=== PATIENT | male | born 1990 | race Caucasian/White ===

== ENCOUNTER 2016-11-30 20:09 | Inpatient (IN) | payer OTHER ==
[~2016-11-30] VITALS: Ht 188 cm; Wt 87.3 kg
[2016-11-30 20:39] VITALS: BP 135/77; PULSE 81; RESP 14; O2SAT 100
--- NOTE | 2016-11-30 20:50 | ED.REPORT ---
HPI-General Illness Date of Service Nov 30, 2016 ED Provider: Mulugeta Bernard MD A 26 year old male with a history of polysubstance abuse and meth psychosis is brought to the ED via EMS due to an intentional overdose. The patient was found down by EMS with oxygen saturation of 88%. He was given 0.5 mg of Narcan and improved significantly. The patient intentionally overdosed with heroin one hour prior to arrival due to an argument with his significant other, and continues to make suicidal statements to paramedics and in the ED. The patient also admits to methamphetamine use earlier today in addition to several other drugs. He is now experiencing auditory hallucinations and stating that "people are trying to kill him." The patient takes "mental health medications" but is not seeing a mental health professional at this time. He was released from a [facility] in [place] four days ago. Nursing Notes Chief Complaint: Substance Abuse Nursing Notes Reviewed: Yes General Time Seen by MD: 20:26 Chief Complaint Other (Intentional overdose) Hx Obtained From: Patient, EMS Arrived By: Ambulance Sudden in Onset?: Yes Onset Occurred: 1 - 4 hours ago Recent Healthcare: No recent doctor visit, No recent hospitalization Past Medical History Past Medical History polysubstance abuse meth psychosis Past Surgical History none reported Smoking History Unknown if Ever Smoker Social History Alcohol Use: "Social" Drug Use: IV drugs, Meth, THC Ambulatory Status Independent Review of Systems Unable to Obtain ROS Intoxicated Physical Exam Vital Signs Vital Signs Date Time Temp Pulse Resp B/P Pulse Ox O2 Delivery O2 Flow Rate FiO2 11/30/16 22:44 86 16 102/63 93 Room Air 11/30/16 20:39 36.5 81 14 135/77 100 Room Air Initial VS: Reviewed General/Constitutional: Awake, Alert Behavior: Positive: Agitated Head / Eyes: Atraumatic, Normocephalic, PERRL, EOMI ENT: Atraumatic, Airway patent, Mucous membranes moist Neck: Atraumatic, Supple, Full range of motion Respiratory / Chest: Atraumatic, Breath sounds NL, Breath sounds = bilat, No respiratory distress Cardiovascular: Heart rate NL, Regular rhythm, Heart sounds NL Abdomen: Atraumatic, Soft, Non-tender Back: Atraumatic, Full range of motion Upper Extremities Upper Extremity / MS: Atraumatic, Neurologic intact, Vascular intact Hutchison on L and R arm consistent with prior injection drug use Lower Extremity / Pelvis / MS: Atraumatic, Full range of motion Skin: No rash, Warm, Dry Neurologic: Oriented X3, Speech NL, No motor deficits, No sensory deficits Psychiatric: Mood NL hallucinating paranoid suicidal good insight poor judgement states that he does not wish to stay Interpretation & Diagnostics Lab Results Interpretation Result Diagram: 11/30/16203311/30/162033 Test 11/30/16 20:34 11/30/16 21:14 White Blood Count 7.0th/mm3 (3.8-10.1) Red Blood Count 4.32mil/mm3 (4.40-5.80) Hemoglobin 12.8g/dL (13.8-17.2) Hematocrit 36.1% (41.0-50.0) Mean Corpuscular Volume 83.6fL (81-100) Mean Corpuscular Hemoglobin 29.6pg (27.0-35.0) Mean Corpuscular Hemoglobin Concent 35.5% (32.0-37.0) Red Cell Distribution Width 12.1% (12.3-15.4) Platelet Count 223bil/L (150-400) Neutrophils (%) (Auto) 51.5% (40-74) Lymphocytes (%) (Auto) 34.4% (14-46) Monocytes (%) (Auto) 12.5% (4-12) Eosinophils (%) (Auto) 1.4% (0-5) Basophils (%) (Auto) 0.1% (0-3) Hold Purple Top Tube Received (Received) Hold Blue Top Tube Received (Received) Sodium Level 138mEq/L (134-144) Potassium Level 3.9mEq/L (3.5-5.2) Chloride Level 97mEq/L (97-108) Carbon Dioxide Level 22mmol/L (18-29) Blood Urea Nitrogen 31mg/dL (6-20) Creatinine 1.07mg/dL (0.76-1.27) Estimat Glomerular Filtration Rate 87mL/min (>59) Glucose Level 92mg/dL (60-99) Calcium Level 9.6mg/dL (8.5-10.1) Total Bilirubin 1.7mg/dL (0.0-1.2) Aspartate Amino Transf (AST/SGOT) 43U/L (0-50) Alanine Aminotransferase (ALT/SGPT) 38U/L (0-44) Alkaline Phosphatase 57U/L (25-150) Total Protein 8.8g/dL (6.4-8.4) Albumin 5.3g/dL (3.4-5.0) Thyroid Stimulating Hormone (TSH) 2.290uIU/mL (0.450-4.500) Hold [place] Top Tube Received (Received) Hold Urine Received (Received) Lab Results Interpretation: tox screen positive for benzodiazepines, THC, methamphetamines, opiates, ecstasy and amphetamines Re-Eval/Medical Decision Med Decision/Clinical Course 26-year-old male arrives psychotic and with suicidal ideation. Has used methamphetamine earlier in the day and his suicide plan was to overdose on heroin. Became agitated and threatening to elope which required sedation with IV Haldol and lorazepam. Is not somnolent and will need a mental health eval when he is awake. Time of Eval: 21:49 Re-Evaluation/Progress Note: Patient rechecked, who is awake and conversant. Additional history is obtained. Time of Eval: 23:49 Re-Evaluation/Progress Note: Patient rechecked, who is stable and sleeping. Counseled Regarding: Diagnosis, Lab results Discharge & Departure Shift Change Sign-Out Patient Care Transferred: Yes Discussed Complaint(s): Yes Laboratory Evaluation: Lab evaluation discussed To Dr Torres at midnight. no acute medical issues found, awaiting metabolism of sedation and re-eval Primary Impression: Psychosis Psychosis type: other Qualified Code: F28 - Other psychotic disorder not due to a substance or known physiological condition Additional Impression: Drug abuse Discharge Condition All VS Reviewed: Yes Condition: Stable Care Transferred to: Dr. Torres Care Transferred at: 00:00 Scribe Attestation Portions of this note were transcribed by Claude Jauregui and Go Navarro. I, Dr. Bernard personally performed the history, physical exam and medical decision- making; I reviewed and confirmed the accuracy of the information in the transcribed note. Signed by: Claude Navarro, Scribe, 12/01/16 and 0014. Mulugeta Bernard MD Nov 30, 2016 20:50 Claude Jauregui Nov 30, 2016 23:51 GO NAVARRO Dec 01, 2016 00:12
[2016-11-30] MEDS ORDERED: Haloperidol 5 mg/mL Inj IVPUSH ONE (21:55)
[2016-11-30 22:01] LABS: BASOPHILS % (AUTO) 0.1 % (0-3); EOSINOPHILS % (AUTO) 1.4 % (0-5); MONOCYTES % (AUTO) 12.5 % (4-12); Mean Corpuscular Hemoglobin 29.6 pg (27.0-35.0); Mean Corpuscular Volume 83.6 fL (81-100); NEUTROPHILS % (AUTO) 51.5 % (40-74); Platelet Count 223 bil/L (150-400)
[2016-11-30 22:44] VITALS: BP 102/63; PULSE 86; RESP 16; O2SAT 93
[2016-12-01 06:01] VITALS: BP 95/59; PULSE 71; RESP 14; O2SAT 100
[2016-12-01 07:46] VITALS: BP 90/59; PULSE 74; O2SAT 98
[2016-12-01 11:05] VITALS: BP 86/56; PULSE 79; O2SAT 98
[2016-12-01] MEDS ORDERED: OLANZapine Zydis ODT 5 mg Tablet PO ONE (17:35)
[2016-12-01 19:42] VITALS: BP 103/68; PULSE 80; RESP 18; O2SAT 97
[2016-12-02 00:03] VITALS: BP 106/72; PULSE 89; RESP 16; O2SAT 98
[2016-12-02 06:32] VITALS: BP_SYST 103; BP_SYST 106; BP_DIAS 66; BP_DIAS 72; PULSE 81; PULSE 89; RESP 16; O2SAT 97; O2SAT 98
[2016-12-02 09:05] VITALS: BP 104/61; RESP 12; O2SAT 98
[2016-12-02 09:24] VITALS: BP 104/61; PULSE 81; RESP 12; O2SAT 98
--- NOTE | 2016-12-02 11:18 | NUR ---
[id number]. nurs 26 y.o. male pt admitted to [facility] from [facility] ED at 0917. Pt detained on a 72 hr hold as GD and D to S at 3 pm on 12/01/16. Pt reports hx of depression, anxiety, and polysubstance abuse for last 10yrs, and multiple chem. dep. tx programs without effectiveness. Pt states that his goal is to get tx for his anxiety and the hallucinations he has been experiencing more recently in last 2 yrs with (his preferred substances) daily IV meth and heroin use. Pt also states that he wants to access further chem dep. tx through the court. Pt states that he has court in [place] today and other pending court hearings. Pt states that he has parents and friends that are supportive that he can stay with on discharge. Pt states that his previous ODs were all accidental and not SAs. Pt states he can reliably maintain no harm contract on unit. Pt states he has had prev. trials on anti depressants celexa ,zoloft and remeron which were not effective but that klonapin and xanax helped anxiety. Pt reports no hx of PTSD, pt states has not been employed for many yrs. Pt reports having hepatitis c. Addendum: 12/02/16 at 1918 by AZUL SELLERS RN Pt given 10mg of zyprexa at 1820 for c/o agitated and anxious feelings. Pt had been isolating in bedrm over day, out to get meals. Pt stating at 1819 that he was not currently experiencing any hallucinations. Pt had been on phone with family and wanting to visit with girlfriend Araseli and appeared to have positive visit with her this yolande.
--- NOTE | 2016-12-02 14:02 | HP ---
[address] [address] HISTORY AND PHYSICAL PATIENT: BATSHEVA SANCHEZ : 1990 MR#: [id number] ADMIT: 12/02/2016 JOB ID: [id number] IDENTIFICATION OF PATIENT: The patient is a 26-year-old male who reportedly was admitted under TERRY status due to significant concern of possible suicidal ideation, intent and plan. The patient reportedly identified that he does not recall the circumstances that led to his hospitalization due to the fact that he was under the influence of multiple substances. CHIEF COMPLAINT: "I don't really remember and there are certain things I just don't want to talk about." HISTORY OF PRESENT ILLNESS: As stated above, the patient reportedly identified that he knows that he was brought in by EMS after his girlfriend called for assistance. He reportedly is aware that he had made comments that he was going to kill himself with an overdose of heroin. The patient was open about his current usage of substances; identifying that he has drug of choice, including methamphetamine, THC, and heroin. He reports that he began his usage at the age of 10. He indicated that he has attended multiple interventions of chemical dependency treatment including [facility], [facility], [place], and other drug treatment programs throughout the state. He currently was released from [facility] within the past week and returned to his girlfriend's home living with her parents. He reports that he has been using both methamphetamine and heroin on a daily basis and tested positive for benzodiazepines, THC, methamphetamine, opiates, Ecstasy, and regular amphetamines. He admits to multiple usage in the past including marijuana, mushrooms, Venecia, LSD, mescaline, Vicodin, Adderall, heroin, methamphetamine and Percocet. On interview today, the patient openly identified continuation of difficulties with hallucinations indicating that he is hearing voices, and also seeing things but would not elaborate. Per ER report, the patient had identified beliefs that his girlfriend is somehow being controlled by a reptilian alliance. He reportedly does have fears about such and made multiple reflections with staff encounter that he believes that his girlfriend is under the control of the alliance. On interview, the patient denied any current suicidal ideation, intent, or plan. He indicated that he would be willing to reconsider chemical dependency treatment and states that he knows that he is under probation and that he was scheduled to actually have a court appearance in [facility] today. Calls will be placed accordingly by the manager rn case. PAST MEDICAL HISTORY: Substantial for no allergies to medications. Medications of current include none. He reportedly is positive for hep C and has received treatment in the past for such. PAST PSYCHIATRIC HISTORY: Denied, with primary chemical dependency treatment in the past. SOCIAL HISTORY: Currently patient lives at the girlfriend's home along with her parents. He reports that his biological mother and father reside in [place]. He has a sibling brother age 23 with whom he has no contact. He does admit to the above substance abuse issues. He denies any daily usage of alcohol. He denies any history of trauma or abuse. FAMILY HISTORY: Unknown but positive for drug and alcohol issues in the parents per his own report. DEVELOPMENTAL HISTORY: He reportedly graduated from high school, later attended courses at [employer]. MENTAL STATUS EXAM: General appearance: The patient was cooperative, polite. He is casually dressed in hospital scrub attire. He makes intermittent eye contact. His speech was slow to respond. He apologized repeatedly indicating that he feels that he cannot track and follow very well. His mood was neutral. Affect was guarded. His thought process showed no evidence of racing thoughts, flight of ideas, loose or disconnected thinking. His thought content: He denied any evidence of current suicidal ideation, intent, or plan. He does admit to the above auditory and visual hallucinations. He would not elaborate on such but delineated information to the nursing staff earlier about fears of an alliance, of the reptilian alliance nature. He was alert, oriented to time and place. His attention and concentration are poor. Insight and judgment are poor. IMPRESSION: AXIS I: 1. Substance abuse psychoses 2. Rule out substance-induced mood disorder. 3. Polysubstance use disorder including amphetamines, opiates, hallucinogens. AXIS II: Antisocial personality disorder. AXIS III: Hepatitis C. AXIS IV: Stressors are noted for chronic substance use, history of ineffective coping. AXIS V: Global Assessment of Functioning, current 30. PLAN: 1. Recommendation for initiation of Zyprexa 10 mg b.i.d. with additional p.r.n. doses q.6 hours for agitation. 2. Recommendations for chemical dependency treatment. Calls will be placed with probation in reference to recommendations. 3. No recommendations for pursuit of continuance of hospitalization with primary focus to be maintained on a chemical dependency treatment.
--- NOTE | 2016-12-02 18:48 | NUR ---
Security Guard/Counselor: S: "I've been to a lot of in-patient and out-patient treatment centers." O: Patient slept last night as per staff. He denies S/I and H/I. He reports hearing voices, but stated that he does not want to talk about them. He also reports visual hallucinations, "at times." A: Patient is cooperative, poor concentration, poor insight, poor judgment. P: Follow care plan, coordinate out-patient providers.
--- NOTE | 2016-12-03 04:17 | NUR ---
Nursing Noc Pt cooperative in milieu, noted to request medications not currently available for anxiety. Noted to have calm normal appearing visit with sig/other. Continuing to monitor mood, behavior, and emotional state. BHCP Continuing to monitor mood behavior and emotional state. Q15 safety checks throughout the shift.
--- NOTE | 2016-12-03 05:56 | NUR ---
nursing, nights, 11-7 s/o- has appeared to sleep after 0030 during q 15 minute assessments. a- no apparent distress. p- monitor behavior/emotional state, quality, times and amount of sleep, use and effect of medication. esperanza
[2016-12-03 10:00] VITALS: BP 105/71; PULSE 88; RESP 16
--- NOTE | 2016-12-03 12:20 | PCM.PNPSY ---
Subjective Date of Service Dec 03, 2016 Subjective I spent 30 minutes both reviewing his treatment plan and providing supportive and educational psychotherapy. I spent more than 50% of the time counseling the patient. I reviewed the treatment plan with the patient and discussed options available including the potential risks, benefits and side effects. Andres reports a decrease in intensity of suicidal ideation. He reports a gradual improvement in mood. The Staff reports that he has been active and is participating well in one-to-one unit and group activities. He slept 5 hours. He denies medication side effects. Patient was able to identify his medications and what they were used to treat. Current Medications Current Medications Clonazepam 2 mg ONCE ONCE PO Last administered on 12/01/16 19:20; Admin Dose 2 MG; Start 12/01/16 at 17:35; Stop 12/01/16 at 17:36; Status DC Olanzapine 10 mg BID PO Last administered on 12/03/16 08:07; Admin Dose 10 MG; Start 12/02/16 at 12:00 Olanzapine 10 mg ONCE ONCE PO Last administered on 12/01/16 19:20; Admin Dose 10 MG; Start 12/01/16 at 17:35; Stop 12/01/16 at 17:36; Status DC Olanzapine 10 mg Q6H PRN PO Last administered on 12/02/16 18:21; Admin Dose 10 MG; Start 12/02/16 at 12:00 Mental Status Exam Appearance: Neat/well groomed Attitude: Cooperative Behavior: No unusual behavior Affect: Restricted Mood: Dysthymic Thought Process/Associations: Goal Directed Speech Production: Normal Speech Rate: Normal Speech Articulation: Normal Thought Content: Appropriate Danger to Self/Suicidal Ideati: Passive, Plan (intensity of suicidal ideation decrease client planning to overdose on heroin for suicide) Danger to Others: None Consciousness: Alert Orientation: Person, Place, Date, Situation Memory: Grossly Intact Estimate Intellectual Function: Average Basis for IQ estimate: Awareness current events, Word use/vocabulary Attention/Concentration & Cogn: Impaired Insight: Good Judgement: Poor Result Diagram: 11/30/16203311/30/162033 Mental Health Plan The patient is a 26-year-old male who reportedly was admitted under TERRY status due to significant concern of possible suicidal ideation, intent and plan. The patient reportedly identified that he does not recall the circumstances that led to his hospitalization due to the fact that he was under the influence of multiple substances. Today patient notes intensity of suicidal ideation decreasing. He appreciates current medications Although is concerned about relatively high doses of Zyprexa and is asking for a decrease. [place] AXIS I: 1. Substance abuse psychoses 2. Rule out substance-induced mood disorder. 3. Polysubstance use disorder including amphetamines, opiates, hallucinogens. AXIS II: Antisocial personality disorder. AXIS III: Hepatitis C. AXIS IV: Stressors are noted for chronic substance use, history of ineffective coping. AXIS V: Global Assessment of Functioning, current 30. Treatments Patient is being provided with a high degree of safety through the structure and active adult engagement. We will focus on developing improved coping skills and identifying stressors that may have led to current episode. We will attempt to: Integrate into therapeutic groups, milieu and individual therapy. Maintain in a closely monitored and structured unit Provide low-stimulation environment Obtain collateral data to assist in treatment planning Assess degree of lability of affect and impulse control Complete safety plan Decrease frequency of relapse and need for re-hospitalization Denies thoughts of harm to self and/or others Establish a consistent sleep pattern Medication effective in stabilization of mood and/or thought process Reduce the risk of imminent harm to self and/or others by providing a safe environment Tolerates medication without side effects Patient will be on the following psychiatric medications: Decrease Zyprexa to 10 mg at bedtime Add Klonopin 1 mg twice a day for 3 days then discontinue Education: Educate patient about recreational drug use as an etiology Educate about metabolic etiologies related to obesity Address patient's legal status Patient is on a 72 hour involuntary treatment hold. Patient will be given the opportunity to talk to her deposition reporter and the county court judge on Tuesday Disposition: Elia Mooney MD Dec 03, 2016 12:20
--- NOTE | 2016-12-03 15:30 | NUR ---
Nursing Day Shift S: "We have apple trees and miller trees on my property." O: Patient discussing his trees after looking at the fig and miller tree out side of the west end hoffmann window. Has been working on crafts this afternoon. States he is "bummed" not to be leaving today but "I'm okay with leaving Tuesday". Eating well at meals. Rates anxiety at a 7/10. New order for clonazepam 1 mg PO BID received and patient received his first dose this afternoon and will pass on to staff med's effectiveness. Denies depression, harmful thoughts, and hallucinations. Watching TV at present by himself. A: Interactive on approach. Med compliant. P: CPOC. Monitor mood and behavior.
--- NOTE | 2016-12-03 17:38 | NUR ---
[facility] Day Shift Pt maintained behavioral control throughout the shift. Pt affect appears mostly euthymic, occasionally flat when alone in the dining room and brighter when engaged with staff and peers. Pt spends most of the shift resting in his room, sitting quietly/watching TV in the dining room, and engaging in unit activities. Pt is appropriate with staff and peers when active on the unit. Pt attended all group activities throughout the shift (pt participated mildly in AM group, actively in afternoon group). Pt attended all meals and ate approx 100% of all meals.
--- NOTE | 2016-12-03 18:46 | NUR ---
Loading Checker/Counselor: S: "I have a place to go when I discharge." O: Patient slept 5+ hours last night as per staff. He denies S/I and H/I. He denies auditory and visual hallucinations. Depression is 0/10 and anxiety 0/10. When asked his mood, patient stated, "A 10." A: Patient is cooperative, slowly improving, poor insight, poor judgment. P: Follow care plan, coordinate out-patient providers.
[2016-12-03] MEDS ORDERED: Magnesium Hydroxide 10 mL Oral Concentration PO PRN (22:20)
[2016-12-03] MEDS ORDERED: Alum-Mag Hydrox-Simeth 30 mL Suspension PO PRN (22:20)
[2016-12-03] MEDS ORDERED: Benzocaine-Menthol Lozenge 2/Pkg PO PRN (22:20)
--- NOTE | 2016-12-04 05:52 | NUR ---
Nursing Note 7pm to 7am Fire And Safety Helper Pt visible on unit at start of shift, calm, pleasant and cooperative. Pt watched tv with peers with minimal interaction. Pt reports his mood is improving, reports depression is 4/10 and anxiety 8/10. Unable to identify what is triggering his anxiety. Thoughts organized and linear. Insight limited. Pt indicated he was going to ask if MD if he could be discharging on Klonopin, It helped me stay off Heroin when I took it on the script. Pt educated on risks of taking a controlled substance with a SA HX. Pt dismissed this info as not applying to him. Pt given no prns, ambien order obtained after pt had gone to sleep. Slept 7.25 hours
[2016-12-04 09:43] VITALS: BP 101/67; RESP 16
--- NOTE | 2016-12-04 12:02 | PCM.PNPSY ---
Subjective Date of Service Dec 04, 2016 Subjective I spent 30 minutes both reviewing his treatment plan and providing supportive and educational psychotherapy. I spent more than 50% of the time counseling the patient. I reviewed the treatment plan with the patient and discussed options available including the potential risks, benefits and side effects. Andres reports a resolution of suicidal ideation. He reports improved mood. The Staff reports that he has been active and is participating well in one-to-one unit and group activities. He slept 7.5 hours. He denies medication side effects. Patient was able to identify his medications and what they were used to treat. Current Medications Current Medications Clonazepam 1 mg BID PO Last administered on 12/04/16 09:17; Admin Dose 1 MG; Start 12/03/16 at 12:20 Olanzapine 10 mg BID PO Last administered on 12/03/16 08:07; Admin Dose 10 MG; Start 12/02/16 at 12:00; Stop 12/03/16 at 12:21; Status DC Olanzapine 10 mg HS PO Last administered on 12/03/16 20:31; Admin Dose 10 MG; Start 12/03/16 at 21:00 Olanzapine 10 mg Q6H PRN PO Last administered on 12/02/16 18:21; Admin Dose 10 MG; Start 12/02/16 at 12:00 Mental Status Exam Vital Signs Vital Signs Date Time Temp Pulse Resp B/P Pulse Ox O2 Delivery O2 Flow Rate FiO2 12/04/16 09:43 36.3 16 101/67 Appearance: Neat/well groomed Attitude: Cooperative Behavior: No unusual behavior Affect: Restricted Mood: Dysthymic Thought Process/Associations: Goal Directed Speech Production: Normal Speech Rate: Normal Speech Articulation: Normal Thought Content: Appropriate Danger to Self/Suicidal Ideati: Passive, Plan (intensity of suicidal ideation decrease client planning to overdose on heroin for suicide) Danger to Others: None Consciousness: Alert Orientation: Person, Place, Date, Situation Memory: Grossly Intact Estimate Intellectual Function: Average Basis for IQ estimate: Awareness current events, Word use/vocabulary Attention/Concentration & Cogn: Impaired Insight: Good Judgement: Limited Result Diagram: 11/30/16203311/30/162033 Mental Health Plan The patient is a 26-year-old male who reportedly was admitted under TERRY status due to significant concern of possible suicidal ideation, intent and plan. The patient reportedly identified that he does not recall the circumstances that led to his hospitalization due to the fact that he was under the influence of multiple substances. Today patient notes intensity of suicidal ideation decreasing. He appreciates current medications Although is concerned about relatively high doses of Zyprexa and is asking for a decrease. Andres continues to show gradual and steady progress and if this continues I plan to discharge him Tuesday a.m. [place] AXIS I: 1. Substance abuse psychoses 2. Rule out substance-induced mood disorder. 3. Polysubstance use disorder including amphetamines, opiates, hallucinogens. AXIS II: Antisocial personality disorder. AXIS III: Hepatitis C. AXIS IV: Stressors are noted for chronic substance use, history of ineffective coping. AXIS V: Global Assessment of Functioning, current 40. Treatments Patient is being provided with a high degree of safety through the structure and active adult engagement. We will focus on developing improved coping skills and identifying stressors that may have led to current episode. We will attempt to: Integrate into therapeutic groups, milieu and individual therapy. Maintain in a closely monitored and structured unit Provide low-stimulation environment Obtain collateral data to assist in treatment planning Assess degree of lability of affect and impulse control Complete safety plan Decrease frequency of relapse and need for re-hospitalization Denies thoughts of harm to self and/or others Establish a consistent sleep pattern Medication effective in stabilization of mood and/or thought process Reduce the risk of imminent harm to self and/or others by providing a safe environment Tolerates medication without side effects Patient will be on the following psychiatric medications: zyprexa to 10 mg at bedtime Klonopin 1 mg twice a day for 3 days then discontinue Education: Educate patient about recreational drug use as an etiology Educate about metabolic etiologies related to obesity Address patient's legal status Patient is on a 72 hour involuntary treatment hold. Disposition: Plan to discharge to Home Tuesday and drop the mental health hold if he continues to improve Elia Mejia MD Dec 04, 2016 12:02
--- NOTE | 2016-12-04 13:40 | NUR ---
Mucker Operator./ c.m. S.:"I'm great! I have never been suicidal. It was all just drug induced psychosis. I was out of my mind hallucinating and I thought that people would kill me in a horrible torture way so I was going to make it easy for myself in that reality. Now I can see that it was a drug induced reality and it had nothing to do with my present reality." O.: met with pt. in a private room. He denied SI/HI, denied AH/VH or paranoid/delusional thoughts. He denied depression or anxiety. "I feel excited about my future." He said that his g.f. was planing to come around noon tomorrow to pick him up. He wants to fax his prescription to [facility] in [facility]. He agreed to work on his Safety plan. He was in and out of his room talking to selected peers. A.: pt. is cooperative, pleasant, quiet, social with selected peers. P.: monitor behavior, check Safety plan; follow care plan.
--- NOTE | 2016-12-04 18:28 | NUR ---
Nursing Dayshift: S: "Do you know when I get meds again?" O: Patient med compliant. Asked above question twice today. Eating well at meals. Girlfriend visited this afternoon. Requesting to use the piano room for visit which was denied due to staff utilizing room. Both patient and girlfriend questioned decision. Denies anxiety, depression, harmful thoughts, and hallucinations. A: Flat. Social with select peers. P: CPOC. Monitor mood and behavior.
--- NOTE | 2016-12-04 18:36 | NUR ---
OBSERVATIONS Pt was pleasant and cooperative with staff. Pt was isolative for most of the shift but did spend minimal time in the milieu, socializing with peers. Pt visited with girlfriend/(?), a visit that was kept to the dining room and closely monitored d/t the nature of pt's admission and his visitor's suspected drug history. Pt appears calm, rational, thoughts are organized. Maintained Q15 checks for safety ad directed.
--- NOTE | 2016-12-05 04:47 | NUR ---
NOC OBS Pt noted in evening group that the medications were working well and that he was glad he was still here/not successful in OD attempt. He also talked about being grateful to staff including the housekeeping. He enjoyed the interactions and music as well. Asleep 2215. Pt observed every 15 minutes as ordered.
--- NOTE | 2016-12-05 05:27 | NUR ---
Nursing Note 7pm- 7am Seafood Technology Specialist Pt visible on unit, affect blunted, mood dysphoric, eye contact poor, overheard pt. say to another pt. "They say I am leaving tomorrow but they go back on their word". "Pt asked for HS medications at 1915 stating I just want to go to sleep so tomorrow will be here when I wake up". Pt given Ambien 5mg for sleep. Monitored pt. q 15 minutes for safety , location and accountability. Pt had uninterrupted sleep the duration of the shift.
--- NOTE | 2016-12-05 10:08 | NUR ---
Coffee Brewer./ c.m. S.:"I'm feeling great! I'm ready to go." O.: met with pt. to finalize his discharge today. He completed Safety plan. He slept "pretty good" last night. He denied SI/HI, denied AH/VH or paranoid/delusional thoughts. He denied depression or anxiety. He was looking forward to his discharge today. His g.f. will come around noon to pick him up. He has intake appt. for mental health services tomorrow, December 06 at 9:30 am with Shannan at [facility] in [facility] ([phone]). A.: pt. is cooperative, pleasant, looks calm, has a positive attitude. P.: monitor behavior, follow care plan.
[2016-12-05] MEDS ORDERED: KLO1T PO (12:18)
[2016-12-05] MEDS ORDERED: OLAN5TAB PO (12:18)
--- NOTE | 2016-12-05 12:41 | NUR ---
Nursing Discharge Note: Patient cooperative with discharge process. Acknowledges understanding of d/c instructions and has a copy with them upon leaving unit at 1230. Belongings accounted for and with patient. Prescriptions with patient and will be filled at a pharmacy of patient's choice. Patient denies harmful thoughts and hallucinations at this time.
--- NOTE | 2016-12-05 15:47 | DIS ---
[address] [address] DISCHARGE SUMMARY PATIENT: BATSHEVA SANCHEZ : 1990 MR#: [id number] ADMIT: 12/02/2016 JOB ID: [id number] DIS: 12/05/2016 IDENTIFICATION: Patient, 26-year-old white male, currently living with his girlfriend and her parents. He admits to long-term history of polysubstance abuse with several encounters with the law which have resulted in him going to [facility]pc. He is currently unemployed. REASON FOR ADMISSION: Client admitted to the unit on a 72-hour involuntary treatment after he was complaining of suicidal ideation with intent and plan to overdose on heroin. He could not be safety planned out but was also not a good claudio voluntary. SUMMARY OF PRESENT ILLNESS: The patient is a 26-year-old, white male, who has recently completed a six-month [facility] sentence in [facility]. He since has continued to struggle with IV heroin addiction and had become so despondent that he was planning to kill himself by overdosing. For the first 24 hours of his stay, he was having continued difficulty with auditory hallucinations. He had multiple paranoid bizarre delusions and was focused on suicidal ideation. He reports that he began using at age 10 and indicated that he has attended multiple chemical dependency programs, including [facility], [facility], and other drug treatment programs throughout the [facility]. He was recently released from [place] [facility] facility within the past week and returned to his girlfriend's home, living with her parents. He has been using both methamphetamine and heroin on a daily basis and tested positive for benzodiazepines, THC, methamphetamine, opiates, Ecstasy, and regular amphetamines. HOSPITAL COURSE: Client was admitted to our unit and was provided with a high degree of safety through the structure and active adult engagement he received here. We had him participate in one-to-one unit and group activities focused on improving coping skills, as well as helping him come up with a treatment plan should suicidal ideation recur as an outpatient. He was given 10 mg of Zyprexa and 1 mg of Klonopin twice a day. With this combination, he showed a fairly rapid decrease in psychotic symptoms, delusional thought, and depression. Today, he is requesting discharge and reports no psychotic symptoms and no suicidal ideation. He detailed to me a reasonable safety plan and wants to get back to his girlfriend and pursue a sobriety course of treatment. MENTAL STATUS: Client neatly dressed, calm, pleasant, good eye contact. Mood: Euthymic. Affect congruent. Normal intensity. Thought process: Client is able to relate a coherent history. No neurovegetative signs of depression. No signs of psychosis. Thought content significant for future planning how to take care of himself. Alert and oriented to person, place, and date. Insight and judgment markedly improved. Impulse control highly contained. Reality testing intact. Competence to handle current stressors appears to be at baseline. DISCHARGE PLAN: Client to [facility] up with [facility], December 06, 2016, Tuesday, 9 a.m. DISCHARGE MEDICATIONS: 1. Zyprexa 10 mg h.s. for one month and then recommend discontinuing. 2. Klonopin 1 mg twice a day. Recommend a one-week taper, no refills, #14. ACTIVITY AND DIET: Recommend client refrain from recreational drugs and alcohol while taking psychiatric drugs. Recommend he not change medications unless under the supervision of a physician. CONDITION AT DISCHARGE: Good. PROGNOSIS: Guarded, due to high likelihood of relapse with narcotics and polysubstances.
== END 2016-12-05 12:30 | disposition home or self-care (01) | DRG 897 ==
LOC: SED 20:09 → EDBD 20:09 → MHC 12-02 08:56
PROVIDERS: ADMIT Psychiatry & Neurology Psychiatry; ATTEND Psychiatry & Neurology Psychiatry
DX: F11.159 Opioid abuse with opioid-induced psychotic disorder, unspecified (principal); R45.851 Suicidal ideations; F15.959 Other stimulant use, unspecified with stimulant-induced psychotic disorder, unspecified; F16.159 Hallucinogen abuse with hallucinogen-induced psychotic disorder, unspecified; B19.20 Unspecified viral hepatitis C without hepatic coma; F60.2 Antisocial personality disorder